=== PATIENT | female | born 1960 | race Caucasian/White ===

== ENCOUNTER → 2017-08-27 | Outpatient (CLI) | payer BC ==
[~2017-08-27] MED LIST: 5-ME1POW15 PO; B-COTAB18 PO; CHOL1CAP85 PO; MAGN-22 PO; OMEG10007 PO; PNT500 PO; THYR65TA11 PO
--- NOTE | 2017-08-27 09:19 | DIAGNOSTIC IMAGING REPORT ---
RIGHT KNEE RADIOGRAPHS WITH COMPARISON STANDING AP RADIOGRAPH OF THE LEFT KNEE CLINICAL HISTORY: Right knee pain. COMPARISON: None FINDINGS: Comparison standing AP radiograph of the left knee demonstrates no abnormality. Alignment of the right knee is anatomic. No fracture or suspicious lesion is noted. Joint spaces are preserved. There is no evidence for a joint effusion. Apparent subtle subchondral lucency within the right medial femoral condyle is probably artifactual. IMPRESSION: 1. No acute fracture or joint effusion. 2. Preserved joint spaces of the right knee. 3. Apparent subtle subchondral lucency within the right medial femoral condyle is likely artifactual. An osteochondral abnormality could appear similar although is considered less likely. Electronically signed by: Aditya Ochoa M.D. 08/27/2017 9:18 AM Dictated Date/Time: 08/27/2017 9:16 AM
== END | disposition home or self-care (01) ==
LOC: C.RDSM 11:29
PROVIDERS: ATTEND Physician Assistant
DX: M25.561 Pain in right knee (principal)